=== PATIENT | male | born 1950 | race Caucasian/White ===

== ENCOUNTER 2017-03-08 12:55 | Emergency (ER) | payer OTHER ==
[~2017-03-08] VITALS: Ht 177.8 cm; Wt 94.2 kg
[~2017-03-08 12:55] MED LIST: ASPI81TA28 PO; ATOR-24 PO; CIPR-255 PO; GLC500 PO; MULT-506 PO
[2017-03-08 12:57] VITALS: TEMP 36.8; Ht 177.8 cm; Wt 94.2 kg
[2017-03-08] MEDS ORDERED: SODIUM CHLORIDE 0.9% 1000ML 1,000 ML IV STA ×2 (13:27→14:43)
[2017-03-08] MEDS ORDERED: KETOROLAC TROMETHAMINE 30 MG/ML VIAL IV STA (13:27)
--- NOTE | 2017-03-08 13:32 | EMERGENCY ROOM VISIT NOTE ---
History Report prepared by Scribe: Anne Friend Under the Supervision of: Dr. Anjel Handley M.D. First contact with patient: 13:19 Chief Complaint: FEVER Stated Complaint: FEVER History of Present Illness The patient is a 66 year old male who presents to the Emergency Room with complaints of a persistent fever for the past 1 day. He is accompanied by his . He states his temperature was 103 degrees when checked at home earlier this morning. He has been taking Tylenol, which has provided some relief and his states the last dose of Tylenol was given at 1045 this morning. The patient denies any cough but admits to some minor rhinorrhea, although he notes this may be from allergies. He admits to some fatigue, nausea and diarrhea in the past few days, but denies any recent abdominal pain or vomiting. The patient also complains of a persistent headache for the past 5 days. He rates his discomfort as a 5/10 in severity and states his current headache is not the worst headache he has ever experienced. He denies any neck pain or pain with ROM of the neck. The patient is a former smoker but states he quit smoking "years ago". Source of History: patient, spouse/significant other () Onset: 1 day [employer] Position: other (global) Timing: other (persistent) Modifying Factors (Relieving): tylenol Associated Symptoms: + headache, + nausea, + diarrhea, + fatigue, No cough, No neck pain, No vomiting, No abdominal pain Review of Systems See HPI for pertinent positives & negatives. A total of 10 systems reviewed and were otherwise negative. Past Medical & Surgical Medical Problems: (1) Hyperlipidemia Social History Smoking Status: Never Smoker Alcohol Use: occasionally Drug Use: none Marital Status: Housing Status: lives with family Occupation Status: retired Current/Historical Medications Scheduled Aspirin (Aspirin Ec), 81 MG PO QAM Atorvastatin (Lipitor), 40 MG PO QPM Doxycycline Monohydrate (Monodox), 100 MG PO BID Glimepiride (Glimepiride), 1 MG PO DAILY Metformin HCl (Metformin HCl), 500 MG PO BID Metoprolol Tartrate (Lopressor) (Lopressor), 25 MG PO BID Multivitamin (Multivitamin), 1 TAB PO QAM Allergies Coded Allergies: No Known Allergies (Verified , 03/08/17) Physical Exam Vital Signs Date Time Temp Pulse Resp B/P (MAP) Pulse Ox O2 Delivery O2 Flow Rate FiO2 03/08/17 16:27 81 18 118/69 97 03/08/17 14:58 95 18 122/75 95 Room Air 03/08/17 12:57 36.8 123 20 105/71 95 Room Air Physical Exam GENERAL: Patient is a healthy-appearing well-nourished 66 year old male. HEAD: Normocephalic atraumatic EYES: Ocular movements intact pupils equal and react to light OROPHARYNX: mucous membranes are moist no exudates present no erythema or edema present NECK: Supple no nuchal rigidity. No evidence of meningitis or encephalitis on exam. CHEST: Good equal expansion LUNGS: Clear and equal to auscultation CARDIAC: Normal S1 and S2 ABDOMEN: Soft nontender no guarding BACK: No CVA tenderness EXTREMITIES: No pain upon palpation normal muscle strength in all groups no clubbing cyanosis or edema NEURO: Patient is following commands is answering questions appropriately. Alert and oriented x3 Cranial Nerves 2-12 grossly intact Medical Decision & Procedures ER Provider Diagnostic Interpretation: Radiology results as stated below per my review and radiologist interpretation: CT HEAD WITHOUT CONTRAST (CT) CLINICAL HISTORY: Headache, fever, fatigue, nausea, sinus pain. COMPARISON STUDY: No previous studies for comparison. TECHNIQUE: Axial CT of the brain is performed from the vertex to the skull base. IV contrast was not administered for this examination. CT DOSE: 614.27 mGy.cm FINDINGS: No intra or extra-axial mass lesions are visualized. There is no CT evidence of acute cortical infarction. There is no evidence of midline shift. There is no acute hemorrhage. No calvarial fractures are visualized. There are patchy white matter hypodensities likely on a small vessel basis. There are bilateral basal ganglial lacunar infarcts. There is no evidence of pathologic ventricular dilatation. There is no evidence of acute sinusitis. There is a tiny left maxillary sinus retention cyst. IMPRESSION: No acute intracranial findings Electronically signed by: Goran Ritter M.D. 03/08/2017 2:45 PM CHEST ONE VIEW PORTABLE CLINICAL HISTORY: Shortness of breath. Fever. COMPARISON STUDY: 04/16/2015 FINDINGS: There are postsurgical changes of a midline sternotomy. The heart is borderline enlarged. There is no failure. There is no focal pulmonary consolidation. There are prominent cardiophrenic angle fat pads.[ IMPRESSION: No active disease in the chest. Electronically signed by: Goran Ritter M.D. 03/08/2017 2:15 PM Laboratory Results 03/08/17 13:52 Red Blood Count 4.86, Mean Corpuscular Volume 93.8, Mean Corpuscular Hemoglobin 32.5, Mean Corpuscular Hemoglobin Concent 34.6, Mean Platelet Volume 10.6, Neutrophils (%) (Auto) 76.6, Lymphocytes (%) (Auto) 10.9, Monocytes (%) (Auto) 11.6, Eosinophils (%) (Auto) 0.5, Basophils (%) (Auto) 0.2, Neutrophils # (Auto ) 3.36, Lymphocytes # (Auto) 0.48, Monocytes # (Auto) 0.51, Eosinophils # (Auto ) 0.02, Basophils # (Auto) 0.01 03/08/17 13:52 Test 03/08/17 13:20 03/08/17 13:52 Influenza Type A (RT-PCR) Neg for Influ A (NEG) Influenza Type A Antigen Neg for Influ A (NEG) Influenza Type B Antigen Neg for Influ B (NEG) Influenza Type B (RT-PCR) Neg for Influ B (NEG) White Blood Count 4.39 K/uL (4.8-10.8) Red Blood Count 4.86 M/uL (4.7-6.1) Hemoglobin 15.8 g/dL (14.0-18.0) Hematocrit 45.6 % (42-52) Mean Corpuscular Volume 93.8 fL (80-100) Mean Corpuscular Hemoglobin 32.5 pg (25-34) Mean Corpuscular Hemoglobin Concent 34.6 g/dl (32-36) Platelet Count 104 K/uL (130-400) Mean Platelet Volume 10.6 fL (7.4-10.4) Neutrophils (%) (Auto) 76.6 % Lymphocytes (%) (Auto) 10.9 % Monocytes (%) (Auto) 11.6 % Eosinophils (%) (Auto) 0.5 % Basophils (%) (Auto) 0.2 % Neutrophils # (Auto) 3.36 K/uL (1.4-6.5) Lymphocytes # (Auto) 0.48 K/uL (1.2-3.4) Monocytes # (Auto) 0.51 K/uL (0.11-0.59) Eosinophils # (Auto) 0.02 K/uL (0-0.5) Basophils # (Auto) 0.01 K/uL (0-0.2) RDW Standard Deviation 46.0 fL (36.4-46.3) RDW Coefficient of Variation 13.3 % (11.5-14.5) Immature Granulocyte % (Auto) 0.2 % Immature Granulocyte # (Auto) 0.01 K/uL (0.00-0.02) Anion Gap 11.0 mmol/L (3-11) Est Creatinine Clear Calc Drug Dose 68.8 ml/min Estimated GFR () 72.1 Estimated GFR (Non- 62.2 BUN/Creatinine Ratio 11.6 (10-20) Calcium Level 8.8 mg/dl (8.5-10.1) Total Bilirubin 1.8 mg/dl (0.2-1) Direct Bilirubin 0.4 mg/dl (0-0.2) Aspartate Amino Transf (AST/SGOT) 26 U/L (15-37) Alanine Aminotransferase (ALT/SGPT) 31 U/L (12-78) Alkaline Phosphatase 79 U/L (45-117) Total Protein 7.8 gm/dl (6.4-8.2) Albumin 4.0 gm/dl (3.4-5.0) Lyme Disease IgG Antibody POS (NEG) Labs reviewed by ED physician. Medications Administered Medications (Trade) Dose Ordered Sig/Wale Route Start Time Stop Time Status Last Admin Dose Admin Sodium Chloride 1,000 ml @ 999 mls/hr Q1H1M STAT IV 03/08/17 13:27 03/08/17 14:27 DC 03/08/17 13:50 999 MLS/HR Ketorolac Tromethamine (Toradol Inj) 30 mg NOW STAT IV 03/08/17 13:27 03/08/17 13:29 DC 03/08/17 14:45 30 MG Sodium Chloride 1,000 ml @ 999 mls/hr Q1H1M STAT IV 03/08/17 14:43 03/08/17 15:43 DC 03/08/17 15:29 999 MLS/HR Aspirin (Aspirin Chew) 324 mg NOW STAT PO 03/08/17 14:50 03/08/17 14:51 DC 03/08/17 15:28 324 MG Ceftriaxone Sodium 2000 mg/ Dextrose 70 ml @ 140 mls/hr ONE ONCE IV 03/08/17 15:45 03/08/17 16:14 DC 03/08/17 15:42 140 MLS/HR ED Course 1323: Past medical records reviewed. The patient was evaluated in room A10. A complete history and physical examination was performed. 1327: Toradol 30 mg IV, NSS 1000 ml @ 999 mls/hr IV. 1443: NSS 1000 ml @ 999 mls/hr IV. 1450: Aspirin 324 mg PO. 1450: I reevaluated the patient. He admits to a history of previous strokes. He follows with Dr. Stewart, [facility] and states he has had MRIs of the head in the past. 1500: I reviewed the patients old MRIs and multiple strokes are seen on MRI. 1540: I reevaluated the patient. He is resting comfortably and feeling well. I discussed his results and discharge instructions and he verbalized complete understanding and agreement. 1545: Ceftriaxone Sodium 2000 mg/Dextrose 70 ml @ 140 mls/hr protocol IV. Medical Decision Medication Reconciliation: I attest that I have personally reviewed the patient' s current medication list Blood Pressure Screening: Patient was found to have normal b lood pressure on screening and does not require follow up. Prior records/ancillary studies reviewed. Triage Nursing notes reviewed. The patient's history was concerning for fever. Differential diagnosis: Etiologies such as viral syndrome, otitis, pharyngitis, pneumonia, influenza, meningitis, urinary tract infection, sepsis, bacteremia, as well as others were entertained. This is a 66-year-old male who presents emergency department complaining of headache. The patient has no evidence of meningitis encephalitis on examination. He also does not have a elevation in his white blood count cell count however he is positive for IgG and IgM bands of a Lyme test. He is negative for flu. An IV was established, patient given normal saline bolus, Toradol, Rocephin. I will place the patient on doxycycline for 3 weeks I recommended follow-up with infectious disease. Patient was originally tachycardic upon arrival to the emergency department however he improved with fluids as well as Toradol. I do believe he is well enough to be discharged home. Patient and are in agreement with the treatment plan. The patient' s CAT scan of his head was concerning for 2 strokes however I obtain the patient 's records from [facility] and noted that a stroke for present on a previous MRI. The patient is also aware that the strokes are there. Impression Primary Impression: Lyme disease Additional Impression: Fever Scribe Attestation The scribe's documentation has been prepared under my direction and personally reviewed by me in its entirety. I confirm that the note above accurately reflects all work, treatment, procedures, and medical decision making performed by me. Departure Information Dispostion Home / Self-Care Prescriptions Doxycycline Monohydrate (Monodox) 100 Mg Cap 100 MG PO BID for 21 Days, #42 CAP Prov: Anjel Handley MD 03/08/17 Referrals Fausto Peña D.O. (PCP) Patient Instructions Disease Lyme Prevent, Doxycycline tablets or capsules, ED Lyme Disease, My [facility] Additional Instructions Increase fluids next 48 hours Take 1000 mg Tylenol every 6 hours Take 600 mg Ibuprofen every 6 hours for fever Alternate every 3 hours Follow up with DR Marino's office Culture results are usually available in approx 48 hours You have been examined and treated today on an emergency basis only. This is not a substitute for, or an effort to provide, complete comprehensive medical care. It is impossible to recognize and treat all injuries or illnesses in a single emergency department visit. It is therefore important that you follow up closely with Dr Peña. Call as soon as possible for an appointment. Thank you for your time and consideration. I look forward to speaking with you again soon. Please don't hesitate to call us if you have any questions. Problem Qualifiers Additional Impression: Fever Fever type: unspecified Qualified Codes: R50.9 - Fever, unspecified
[2017-03-08] MEDS ORDERED: METO25TA56 PO (13:43)
[2017-03-08] MEDS ORDERED: GLIM1TAB2 PO (13:43)
[2017-03-08 14:11] LABS: BASO % 0.2 %; BASO ABS # 0.01 K/uL (0-0.2); COMPLETE YES; EOS % 0.5 %; HEMATOCRIT 45.6 % (42-52); IG% 0.2 %; LYMPH % 10.9 %; LYMPH ABS # 0.48 K/uL (1.2-3.4); MEAN CELL VOLUME 93.8 fL (80-100); MEAN CORPUSCULAR HEMOGLOBIN 32.5 pg (25-34); MEAN CORPUSCULAR HGB CONC 34.6 g/dl (32-36); MEAN PLATELET VOLUME 10.6 fL (7.4-10.4); MONO % 11.6 %; NEUT % 76.6 %; PLATELET COUNT 104 K/uL (130-400); RED BLOOD COUNT 4.86 M/uL (4.7-6.1); WHITE BLOOD COUNT 4.39 K/uL (4.8-10.8)
--- NOTE | 2017-03-08 14:16 | DIAGNOSTIC IMAGING REPORT ---
CHEST ONE VIEW PORTABLE CLINICAL HISTORY: Shortness of breath. Fever. COMPARISON STUDY: 04/16/2015 FINDINGS: There are postsurgical changes of a midline sternotomy. The heart is borderline enlarged. There is no failure. There is no focal pulmonary consolidation. There are prominent cardiophrenic angle fat pads.[ IMPRESSION: No active disease in the chest. Electronically signed by: Goran Ritter M.D. 03/08/2017 2:15 PM Dictated Date/Time: 03/08/2017 2:14 PM
[2017-03-08 14:29] LABS: BUN/CREATININE RATIO 11.6 (10-20); CALCIUM 8.8 mg/dl (8.5-10.1); CREATININE 1.2 mg/dl (0.60-1.40); POTASSIUM 4.1 mmol/L (3.5-5.1)
--- NOTE | 2017-03-08 14:46 | DIAGNOSTIC IMAGING REPORT ---
CT HEAD WITHOUT CONTRAST (CT) CLINICAL HISTORY: Headache, fever, fatigue, nausea, sinus pain. COMPARISON STUDY: No previous studies for comparison. TECHNIQUE: Axial CT of the brain is performed from the vertex to the skull base. IV contrast was not administered for this examination. CT DOSE: 614.27 mGy.cm FINDINGS: No intra or extra-axial mass lesions are visualized. There is no CT evidence of acute cortical infarction. There is no evidence of midline shift. There is no acute hemorrhage. No calvarial fractures are visualized. There are patchy white matter hypodensities likely on a small vessel basis. There are bilateral basal ganglial lacunar infarcts. There is no evidence of pathologic ventricular dilatation. There is no evidence of acute sinusitis. There is a tiny left maxillary sinus retention cyst. IMPRESSION: No acute intracranial findings Electronically signed by: Goran Ritter M.D. 03/08/2017 2:45 PM Dictated Date/Time: 03/08/2017 2:43 PM
[2017-03-08] MEDS ORDERED: ASPIRIN 81 MG CHEW PO STA (14:50)
[2017-03-08 15:17] LABS: LYME DISEASE AB IGG POS (NEG); LYME DISEASE AB IGM POS (NEG)
[2017-03-08] MEDS ORDERED: CEFTRIAXONE SOD INJ 1 GM ADDVIAL IV STA (15:18)
[2017-03-08] MEDS ORDERED: DOXY100C76 PO (15:26)
[2017-03-08] MEDS ORDERED: CEFTRIAXONE SOD INJ 2000 MG in DEXTROSE 5% 50ML IV ONE (15:45)
[2017-03-08 16:20] LABS: INFLUENZA A PCR Neg for Influ A (NEG); INFLUENZA B PCR Neg for Influ B (NEG)
[2017-03-08 16:27] VITALS: BP 118/69; PULSE 81; O2SAT 97
[2017-03-12 11:05] LABS: 18KDIGG BAND NONREACTIVE (NONREACTIVE); 23KDIGG BAND NONREACTIVE (NONREACTIVE); 23KDIGM BAND REACTIVE (NONREACTIVE); 28KDIGG BAND NONREACTIVE (NONREACTIVE); 30KDIGG BAND NONREACTIVE (NONREACTIVE); 39KDIGG BAND NONREACTIVE (NONREACTIVE); 39KDIGM BAND NONREACTIVE (NONREACTIVE); 41KDIGG BAND REACTIVE (NONREACTIVE); 41KDIGM BAND NONREACTIVE (NONREACTIVE); 45KDIGG BAND REACTIVE (NONREACTIVE); 58KDIGG BAND NONREACTIVE (NONREACTIVE); 66KDIGG BAND REACTIVE (NONREACTIVE); 93KDIGG BAND NONREACTIVE (NONREACTIVE)
[2017-03-13 01:39] LABS: EHRLICHIA CHAFF IGG AB <1:64 (<1:64); EHRLICHIA CHAFF IGM AB <1:20 (<1:20)
== END 2017-03-08 16:29 | disposition home or self-care (01) ==
LOC: C.EDB 12:56 → C.EDA 16:29
DX: A69.20 Lyme disease, unspecified (principal); R50.9 Fever, unspecified; E78.5 Hyperlipidemia, unspecified; Z79.82 Long term (current) use of aspirin

== ENCOUNTER → 2017-10-27 | Outpatient (CLI) | payer OTHER ==
[~2017-10-27] MED LIST changes: -CIPR-255 PO; +GLIM1TAB2 PO; +METO25TA56 PO
[2017-10-27 10:04] LABS: BLOOD UREA NITROGEN 14 mg/dl (7-18); CREATININE 0.86 mg/dl (0.60-1.40)
== END | disposition home or self-care (01) ==
LOC: C.LAB 07:08
PROVIDERS: ATTEND Urology
DX: N28.1 Cyst of kidney, acquired (principal)

== ENCOUNTER → 2017-11-09 | Outpatient (CLI) | payer OTHER ==
[~2017-11-09] MED LIST changes: +OPTIRAY 320 IV PRN
--- NOTE | 2017-11-09 11:22 | DIAGNOSTIC IMAGING REPORT ---
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 TECHNIQUE: Multidetector CT of the abdomen and pelvis was performed before and after the administration of intravenous contrast. IV contrast: 120 mL of Optiray 320. A dose lowering technique was used consistent with the principles of ALARA (as low as reasonably achievable). COMPARISON: 04/04/2015. CT DOSE (mGy.cm): The estimated cumulative dose is 2453.60 mGycm. FINDINGS: Utility Hand topogram: Median sternotomy wires new from prior. Lung bases: New solid 3 mm nodule in the lateral basal right lower lobe (series 5 image 32). Multiple additional punctate nodules noted at the lung bases (series 5 images 1, 4, 17, 19, 24, 32, 35, 44, 61, 91). Solid 4 mm nodule in the lingula also new from prior (series 5 image 17). Trace emphysematous changes. Normal heart size. Coronary artery calcification. No pericardial or pleural effusion. Liver: Normal morphology. No liver lesion. Patent hepatic vasculature. Biliary: No intrahepatic or extrahepatic biliary ductal dilatation. Normal gallbladder. Pancreas: Normal. Spleen: Normal. Splenule noted. Adrenal glands: Normal. Kidneys and ureters: Multiple well-defined hypodensities in the kidneys, likely cysts, some too small to characterize. No nephrolithiasis. Mild right calyectasis. Multiple parapelvic cysts noted on the left. Ureters normal. No masslike thickening. No obstruction. Bladder: Mild circumferential bladder wall thickening. The previously noted polypoid intraluminal soft tissue along the left posterior lateral aspect is no longer present. No evidence of polypoid mass or irregular thickening. Pelvic organs: Prostate enlargement likely secondary to benign prostatic hyperplasia. Bowel: Diverticulosis of the sigmoid colon. Mild stool burden throughout normal caliber colon. Postsurgical changes of right hemicolectomy. Feces noted in the distal small bowel at the neoterminal ileum likely delayed transit. No bowel obstruction. Peritoneal cavity: No free fluid or intraperitoneal gas. Lymph nodes: No enlarged lymph nodes in the abdomen or pelvis. Vasculature: Atherosclerosis of the abdominal aorta with mild ectasia of the infrarenal portion measuring up to 2.8 cm in diameter, previously 2.6 cm. IVC patent. Abdominal wall: Small fat-containing umbilical hernia. Musculoskeletal: Degenerative changes of the spine. No destructive osseous lesion. Bone island noted in the left femoral neck. Osteopenia. Mild compression deformities of T11-L1. IMPRESSION: 1. Interval development of numerous punctate solid pulmonary nodules at the lung bases. This is highly suspicious for pulmonary metastatic disease. The size of these nodules would likely be below the resolution of PET/CT. 2. Interval resection of the noted polypoid soft tissue intraluminal bladder mass. No recurrent irregular thickening or polypoid mass. Normal ureters and renal collecting systems. No hydronephrosis. 3. No lymphadenopathy or evidence of metastatic disease in abdomen or pelvis. 4. Diverticulosis. 5. Postsurgical changes of right hemicolectomy. 6. Prostatomegaly. The report will be called/faxed according to standard departmental protocol. Electronically signed by: Carl Arboleda M.D. 11/09/2017 11:21 AM Dictated Date/Time: 11/09/2017 11:08 AM
== END | disposition home or self-care (01) ==
LOC: C.CTS 10:09
PROVIDERS: ATTEND Urology
DX: D49.4 Neoplasm of unspecified behavior of bladder (principal); R31.9 Hematuria, unspecified; N28.1 Cyst of kidney, acquired; R91.8 Other nonspecific abnormal finding of lung field; K57.90 Diverticulosis of intestine, part unspecified, without perforation or abscess without bleeding; Z90.49 Acquired absence of other specified parts of digestive tract; N40.0 Benign prostatic hyperplasia without lower urinary tract symptoms

== ENCOUNTER → 2017-11-10 | Outpatient (CLI) | payer OTHER ==
[~2017-11-10] MED LIST changes: -OPTIRAY 320 IV PRN
--- NOTE | 2017-11-10 16:01 | DIAGNOSTIC IMAGING REPORT ---
(CHEST) THORAX WITH CT DOSE: 574.66 mGycm HISTORY: Lung nodule R91.1 Pulmonary [id number] TECHNIQUE: Multiaxial CT images of the chest were performed following the intravenous administration of contrast. A dose lowering technique was utilized adhering to the principles of ALARA. COMPARISON: None. FINDINGS: Several parenchymal nodules throughout both lungs. 4 mm nodule superior segment right lower lobe image 15. 3 mm nodule anterior aspect right upper lobe image 18 3 mm nodule left upper lobe image 27. 3 mm nodule right lower lobe image 29 several nodules in the mid to lower lung regions bilaterally measuring 2 to 4 mm. Evaluation of the mediastinal and hilar regions shows moderate mediastinal adenopathy. Several nodes show components of calcification consistent with granulomatous change. Several nodes, however show no significant calcification. Pretracheal nodes measure to 11 mm. There are several linear periaortic nodes. Precarinal nodes contain calcification. Nodes in the aortopulmonary window measuring to 1.3 cm. IMPRESSION: 1. Multiple micronodules throughout both hemithoraces. Close follow-up is suggested. 2. Moderate mediastinal adenopathy raising the possibility of neoplastic involvement. 3. Heterogeneous enhancement of the spleen suggestive of metastatic disease. The above report was generated using voice recognition software. It may contain grammatical, syntax or spelling errors. Electronically signed by: Danny Fountain M.D. 11/10/2017 3:59 PM Dictated Date/Time: 11/10/2017 3:55 PM
== END | disposition home or self-care (01) ==
LOC: C.CTS 15:13
PROVIDERS: ATTEND Urology
DX: R91.1 Solitary pulmonary nodule (principal); R59.0 Localized enlarged lymph nodes

== ENCOUNTER → 2017-11-12 | Outpatient (CLI) | payer OTHER ==
[2017-11-12 09:49] LABS: BLOOD UREA NITROGEN 14 mg/dl (7-18); CREATININE 0.92 mg/dl (0.60-1.40)
== END | disposition home or self-care (01) ==
LOC: C.LAB 07:32
PROVIDERS: ATTEND Urology
DX: E11.9 Type 2 diabetes mellitus without complications (principal); R31.9 Hematuria, unspecified